=== PATIENT | male | born 1940 | race Caucasian/White ===

== ENCOUNTER → 2016-11-17 | Outpatient (CLI) | payer MEDICARE, BC ==
--- NOTE | 2016-11-17 13:19 | MR ---
EXAMINATION TYPE: MR knee LT wo con DATE OF EXAM: 11/17/2016 12:54 PM COMPARISON: NONE HISTORY: meniscus, internal derangement left knee per order. Twisting injury with pain for one month since episode. TECHNIQUE: Multiplanar, multisequence images of the knee is performed without IV contrast. FINDINGS: MEDIAL MENISCUS: Anterior and posterior horns show globular increased signal worsened posterior horn that does not definitively extend to articular surface, findings consistent with intrasubstance tear. Medial extrusion of meniscus as seen on coronal images. LATERAL MENISCUS: Increased signal seen in the anterior and posterior horns of lateral meniscus, it i s more prominent and oblique in the anterior horn extending to inferior articular surface, findings a re consistent with full-thickness meniscal tear. CRUCIATE LIGAMENTS: The anterior and posterior cruciate ligaments are intact and unremarkable. COLLATERAL LIGAMENTS: The medial collateral ligament and lateral collateral ligament complex are inta ct. Mild fluid signal surrounds medial collateral ligament fibers especially distally. EXTENSOR MECHANISM: Visualized quadriceps and patellar tendons are intact. EFFUSION: There is moderate to large suprapatellar joint effusion extending laterally. POPLITEAL CYST: No popliteal/beavers cyst. TRICOMPARTMENT SPACES: There is mild to moderate tricompartment joint space loss with relative sparin g of the lateral tibiofemoral compartment. There is mild tricompartment joint space spurring. CARTILAGE: There is chondromalacia patella with thinning of articular cartilage along posterior zimmerman lar pole. Full thickness is seen superiorly. There is marked thinning of articular cartilage medial t ibiofemoral compartment with full-thickness cartilaginous loss. There is relative sparing lateral tib iofemoral compartment. BONE MARROW SIGNAL: There is heterogeneous increased T2 signal consistent with osseous contusion or b one marrow edema involving the medial tibial plateau and the medial distal femoral condyle. Additiona l area of increased signal seen in the superior posterior patellar pole where there is full-thickness cartilaginous loss present on sagittal image 18 confirmed on axial image 19. OTHER: No additional significant abnormality is appreciated. IMPRESSION: 1. Oblique full-thickness tear anterior horn of lateral meniscus. 2. Intrasubstance tears posterior horn of lateral meniscus and anterior and posterior horns of medial meniscus. 3. Mild MCL sprain. 4. Moderate to large size suprapatellar joint effusion. 5. Moderate to severe osteoarthritic changes with full-thickness cartilaginous loss and reactive maricel a involving patellofemoral and medial tibiofemoral compartments.
== END | disposition home or self-care (01) ==
LOC: RADMRIMAIN 12:10
PROVIDERS: ATTEND Family Medicine
DX: M23.242 Derangement of anterior horn of lateral meniscus due to old tear or injury, left knee (principal); M23.252 Derangement of posterior horn of lateral meniscus due to old tear or injury, left knee; M23.212 Derangement of anterior horn of medial meniscus due to old tear or injury, left knee; M23.222 Derangement of posterior horn of medial meniscus due to old tear or injury, left knee; S83.502A Sprain of unspecified cruciate ligament of left knee, initial encounter; M17.12 Unilateral primary osteoarthritis, left knee

== ENCOUNTER → 2019-02-17 | Outpatient (CLI) | payer MEDICARE, BC ==
--- NOTE | 2019-02-17 13:48 | MR ---
EXAMINATION TYPE: MR cervical spine wo con DATE OF EXAM: 02/17/2019 1:24 PM COMPARISON: NONE HISTORY: cervical radiculopathy Multiplanar MultiSpin echo imaging of the cervical spine was performed. Comparison: none C2-C3: No evidence for degenerative disc disease. No disc bulge/herniation or protrusion. No Canal stenosis. Foramina are patent bilaterally. C3-C4: Mild to moderate disc desiccation. Left paracentral disc bulge. Mild effacement ventral thecal sac. No evidence for central stenosis. Left-sided foraminal encroachment identified. C4-C5: Mild to moderate disc desiccation. Left paracentral disc bulge. Mild effacement ventral thecal sac. No evidence for central stenosis. Left-sided foraminal encroachment identified. C5-C6: Mild to moderate disc desiccation. Left paracentral disc bulge. Mild effacement ventral thecal sac. No evidence for central stenosis. Left-sided foraminal encroachment identified. C6-C7: Mild to moderate disc desiccation. Left paracentral disc bulge. Mild effacement ventral thecal sac. No evidence for central stenosis. Bilateral foraminal encroachment noted. C7-T1: No evidence for degenerative disc disease. No disc bulge/herniation or protrusion. No Canal stenosis. Foramina are patent bilaterally. Cervical segments are intact. There is normal alignment. Linear signal within the cervical spinal co rd at C6 may be related to artifact. Craniovertebral junction relationships are within normal limits. IMPRESSION: 1. Multilevel degenerative disc disease and disc bulging with foraminal encroachment as outlined jes unger
== END | disposition home or self-care (01) ==
LOC: RADMRIMAIN 12:55
PROVIDERS: ATTEND Family Medicine
DX: M50.11 Cervical disc disorder with radiculopathy, high cervical region (principal)
CPT/HCPCS: 72141

== ENCOUNTER 2019-04-07 11:49 | Day surgery (SDC) | payer MEDICARE, BC ==
[2019-04-04 15:57] VITALS: BMI 30.4
[~2019-04-07 11:49] MED LIST: DEXAMETHASONE SOD PHOSPHATE 10 MG/ML 1 ML VIAL IV ONE; HYDROmorphone 0.5 MG/0.5 ML SYRINGE IVP PRN; LACTATED RINGERS 1,000 ML IV SCH; ONDANSETRON 4 MG/2 ML VIAL IVP ONE; Pre Op ABX Message 1 EACH MISC MISCELLANE ONE; SCOPOLAMINE 1.5MG/72HR PATCH TRANSDERM ONE
[2019-04-07 12:16] VITALS: RESP 16; TEMP 97.6
[2019-04-07] MEDS ORDERED: LIDOCAINE 1% 20 ML VIAL (10MG/ML) FOR IV START INTRADERMA ONE (12:26)
[2019-04-07] MEDS ORDERED: LIDOCAINE 1%-EPI 1:100,000 30 ML VIAL SQ ONE ×2 (13:46→14:11)
[2019-04-07] MEDS ORDERED: PROPOFOL 10 MG/ML 20 ML VIAL IV ONE (13:50)
[2019-04-07] MEDS ORDERED: MIDAZOLAM 2 MG/2 ML VIAL ONE (13:50)
--- NOTE | 2019-04-07 15:09 | P.OP ---
Date of Procedure: 04/07/19 Preoperative Diagnosis: Right carpal tunnel syndrome Postoperative Diagnosis: Right carpal tunnel syndrome Procedure(s) Performed: Right endoscopic carpal tunnel release Anesthesia: MAC, local Surgeon: Gato Chaves Estimated Blood Loss (ml): 1 Condition: stable Disposition: same day Indications for Procedure: The patient is a 79-year-old gentleman who was diagnosed with right carpal tunnel syndrome. Treatment options (and associated risks and benefits) were discussed in the office. The patient elected to proceed with surgical release. In preop, the patient denied any additional questions or concerns. Consent forms were signed. The operative site was confirmed and marked in preop. Description of Procedure: The patient was positioned supine with the operative limb on an arm board. A tourniquet was placed on the operative arm. Monitored anesthesia was administered uneventfully. A time-out was performed, confirming patient identifiers, the operative side, site and the procedure to be performed: all team members expressed agreement. Using aseptic technique, local anesthetic was injected into the subcutaneous tissues around the planned incision. The right upper extremity was then prepped and draped in standard, sterile fashion. The limb was exsanguinated with an Esmarch and the tourniquet was inflated. Loupe magnification was used throughout the case for optimum visualization. A 1.5 cm transverse incision was marked just proximal to the wrist flexion crease, in line with the radial border of the ring finger. The skin was sharply incised and the subcutaneous tissues were bluntly spread. The volar carpal fascia was identified and sharply incised. A synovial elevator was used to release adhesions on the underside of the transverse carpal ligament. A dilator was inserted to sound and enlarge the carpal tunnel. The hamate hook was palpable ulnarly. The side-specific guide and camera were inserted. The transverse carpal ligament was clearly visualized above. The distal edge of the ligament was identified and palpated with a probe. A rasp was used to clear the remaining synovial adhesions. The endoscopic blade was inserted and the distal half of the ligament was sharply incised. The ligament was quite thick. Residual distal transverse fibers were released and then the proximal portion of the ligament was divided. Wide release of ligament was visually confirmed. The camera was removed. The volar carpal fascia proximal and distal to the incision was released with scissors under direct visualization. After release, the nerve had a flattened, dusky appearance. There was a thin film of surrounding perineural tissue but this was not adherent or compressing the nerve. A neurolysis was not performed. The tourniquet was released and good hemostasis obtained with held pressure. The wound was thoroughly irrigated with normal saline. The incision was closed with interrupted 4-0 Nylon sutures. Additional local anesthetic with epinephrine was injected for postoperative pain control. A soft, sterile dressing was applied. All sponge, needle and instrument counts were correct at the end of the case. The patient tolerated the procedure well and was transferred to recovery in stable condition.
[2019-04-07 15:19] VITALS: BP 131/68; PULSE 80
== END 2019-04-07 15:28 | disposition home or self-care (01) ==
LOC: OR 11:49
PROVIDERS: ATTEND Orthopaedic Surgery
DX: G56.03 Carpal tunnel syndrome, bilateral upper limbs (principal); M18.0 Bilateral primary osteoarthritis of first carpometacarpal joints; I10 Essential (primary) hypertension; E78.5 Hyperlipidemia, unspecified; R51 Headache; R42 Dizziness and giddiness; K21.9 Gastro-esophageal reflux disease without esophagitis; Z79.01 Long term (current) use of anticoagulants; Z79.899 Other long term (current) drug therapy; Z79.1 Long term (current) use of non-steroidal anti-inflammatories (NSAID); Z85.46 Personal history of malignant neoplasm of prostate; Z87.891 Personal history of nicotine dependence; Z86.718 Personal history of other venous thrombosis and embolism; Z90.79 Acquired absence of other genital organ(s)
CPT/HCPCS: 29848; J2250; J1100; J2405; J2704

== ENCOUNTER → 2019-08-10 | Outpatient (CLI) | payer MEDICARE, BC ==
--- NOTE | 2019-08-10 22:40 | MR ---
EXAMINATION TYPE: MR shoulder RT wo con DATE OF EXAM: 08/10/2019 COMPARISON: Bilateral shoulder x-rays July 28, 2019 HISTORY: Ricki shoulder pain TECHNIQUE: Multiplanar, multisequence imaging of the right shoulder is performed without contrast. FINDINGS: Rotator Cuff: Full-thickness retracted tear with heterogeneous thickened stump level of the distal ac romion of supraspinatus tendon coronal image 13. Infraspinatus tendon shows heterogeneous increased s ignal without tear. Subscapularis tendon shows heterogeneous increased signal and thickening without tear. Axial image 10. Acromioclavicular Joint: Moderate to severe narrowing and spurring with moderate capsular hypertrophy . Underlying fat plane is effaced. Distal acromion morphology unremarkable. Glenohumeral Joint: Severe inferior narrowing with moderate effusion. Labrum: The labrum appears grossly intact given limitation of non-arthrogram study. Biceps Tendon: The long head of biceps is in normal location within bicipital groove. Marked surround ing fluid noted. Intracapsular portion not well-visualized. Bone marrow signal: No focal abnormal marrow signal is appreciated. Other: No additional significant abnormality is appreciated. IMPRESSION: 1. Full-thickness retracted tear supraspinatus tendon. Tendinopathy of infraspinatus and subscapulari s tendons. 2. Fairly severe AC and glenohumeral joint arthropathy.
--- NOTE | 2019-08-10 22:43 | MR ---
EXAMINATION TYPE: MR shoulder LT wo con DATE OF EXAM: 08/10/2019 COMPARISON: Bilateral shoulder x-rays July 28, 2019 HISTORY: Ricki shoulder pain TECHNIQUE: Multiplanar, multisequence imaging of the left shoulder is performed without contrast. FINDINGS: Rotator Cuff: Intact distal supraspinatus and infraspinatus tendons. Intact subscapularis tendon. Rot ator cuff muscle preserved. Acromioclavicular Joint: Moderate to severe narrowing with moderate capsular hypertrophy and mild to moderate spurring. Type II downsloping acromion. Glenohumeral Joint: Severe narrowing with joint plate changes coronal image 17 for reference. Mild to moderate inferior medial humeral head spurring. Labrum: The labrum appears grossly intact given limitation of non-arthrogram study. Biceps Tendon: The long head of biceps is in normal location within bicipital groove. Bone marrow signal: Heterogeneous changes involving medial humeral head and inferior osseous glenoid. Other: No additional significant abnormality is appreciated. IMPRESSION: 1. Advanced glenohumeral joint arthropathy. 2. Type II downsloping acromion with suggestion of underlying impingement. 3. No rotator cuff tear.
== END | disposition home or self-care (01) ==
LOC: RADMRIMAIN 14:38
PROVIDERS: ATTEND Family Medicine
DX: M75.121 Complete rotator cuff tear or rupture of right shoulder, not specified as traumatic (principal); M67.813 Other specified disorders of tendon, right shoulder; M19.011 Primary osteoarthritis, right shoulder; M19.012 Primary osteoarthritis, left shoulder; M25.812 Other specified joint disorders, left shoulder

== ENCOUNTER → 2023-01-26 | Outpatient (CLI) | payer MEDICARE, BC ==
[2023-01-26 12:43] LABS: African American GFR (CKD) >90 (>60 ml/min/1.73 sqM); Blood Urea Nitrogen 20 mg/dL (9-20); Non-African American GFR(CKD) 88 (>60 ml/min/1.73 sqM)
--- NOTE | 2023-01-26 13:40 | CT ---
EXAMINATION TYPE: CT chest w con DATE OF EXAM: 01/26/2023 COMPARISON: None HISTORY: enlarged lymph nodes CT DLP: 441.7 mGycm Automated exposure control for dose reduction was used. TECHNIQUE: CT scan of the chest is performed with IV Contrast, patient injected with 70 mL of Isovue 300. MIP I mages are created on CT scanner and reviewed. 3D reconstructed images are created on an independent w orkstation and reviewed. FINDINGS: LUNGS: The lungs are grossly clear, there is no concerning parenchymal mass or nodule identified. T here is no pleural effusion or pneumothorax seen. The tracheobronchial tree is patent. Subsegmental changes at the lung bases most typical of scarring or atelectasis. Subpleural area of nodularity left upper lobe anterior segment image 39 measures 7 mm most likely postinflammatory. Vague density left upper lobe lung apex may represent area of atelectasis or pneumonitis. MEDIASTINUM: Within the anterior mediastinum prevascular space there is a 1.5 x 1.4 cm area of pathol ogic lymphadenopathy. No pathologic adenopathy within the hilum or axilla. Mild atherosclerotic casillas e of the aorta. No diagnostic evidence of aneurysm with a maximal dimension of 3.6 cm. Heart at the u pper limits of normal in size. There is a small hiatal hernia. Dense coronary artery atherosclerotic changes. OTHER: Hypertrophic and degenerative changes of the spine. IMPRESSION: 1. No prior exams are available for comparison. There is a 1.5 x 1.4 cm anterior mediastinal patholog ic lymphadenopathy. 2. COPD with a 7 mm area of focal nodular subpleural consolidation anterior segment left upper lobe m ost likely related to atelectasis or scarring. Follow-up on a short-term basis as clinically. 3. Dense coronary artery calcification.
== END | disposition home or self-care (01) ==
LOC: RADCTMAIN 12:02
PROVIDERS: ATTEND Internal Medicine Critical Care Medicine
DX: J44.9 Chronic obstructive pulmonary disease, unspecified (principal); I25.10 Atherosclerotic heart disease of native coronary artery without angina pectoris; R91.1 Solitary pulmonary nodule; R59.0 Localized enlarged lymph nodes
CPT/HCPCS: 82565; 84520; 71260; 36415; Q9967